=== PATIENT | female | born 1960 | race Caucasian/White ===

== ENCOUNTER → 2023-04-04 19:56 | Outpatient (CLI) | payer OTHER, SELFPAY ==
[2023-04-04 21:53] LABS: Alanine Aminotransferase 45 U/L (12-78); Albumin Level 4.5 g/dl (3.5-5.0); Alkaline Phosphatase 74 U/L (38-126); Aspartate Amino Transferase 42 U/L (14-36); Bilirubin,Total 0.5 mg/dl (0.2-1.3); Blood Urea Nitrogen 15 mg/dl (7-17); Calcium 9.7 mg/dl (8.4-10.2); Carbon Dioxide 30 mmol/L (22.0-30.0); Chloride 98 mmol/L (98-107); Estimated Glomerular Filt Rate 63 ml/min (>60); GFR (African American) 76 ML/MIN (>60); Globulin 2.3 g/dL (1.3-3.2); Glucose 183 mg/dl (74-100); Sodium 139 mmol/L (136-145); Total Protein,Serum 6.8 g/dl (6.3-8.2)
[2023-04-05 00:17] LABS: Hemoglobin A1C 7.4 % (4.0-6.0)
== END ==
PROVIDERS: PCP Internal Medicine; Visit Provider Internal Medicine
DX: E11.42 Type 2 diabetes mellitus with diabetic polyneuropathy (principal); E03.9 Hypothyroidism, unspecified; K76.0 Fatty (change of) liver, not elsewhere classified; R51.9 Headache, unspecified; M54.2 Cervicalgia
CPT/HCPCS: 80053; 83036; 84443

== ENCOUNTER → 2023-07-04 11:22 | Outpatient (CLI) | payer OTHER, SELFPAY ==
--- NOTE | 2023-07-04 11:29 | XR_ITS ---
FINAL REPORT CLINICAL HISTORY: S/P FALL ON LT HIP APRIL 2023,LT HIP PAIN FINDINGS: Left hip Three views were obtained. There is no acute fracture or dislocation. The joint spaces appear normal. No soft tissue abnormality is identified. IMPRESSION: No acute process. Reviewed, Interpreted and Dictated by Chase Baig MD Transcribed by Alyson Duke Authenticated and [facility]
== END ==
PROVIDERS: PCP Internal Medicine; Visit Provider Internal Medicine
DX: E11.42 Type 2 diabetes mellitus with diabetic polyneuropathy (principal); M25.552 Pain in left hip; W19.XXXA Unspecified fall, initial encounter
CPT/HCPCS: 73502; 83036

== ENCOUNTER 2023-09-24 13:22 | Outpatient (CLI) | payer OTHER, SELFPAY ==
[2023-09-24 15:43] LABS: Alanine Aminotransferase 51 U/L (12-78); Albumin Level 4.6 g/dl (3.5-5.0); Albumin/Globulin Ratio 1.8 (1.1-1.8); Alkaline Phosphatase 90 U/L (38-126); Anion Gap 13.1 mEq/L (5-15); Aspartate Amino Transferase 47 U/L (14-36); Bilirubin,Total 0.4 mg/dl (0.2-1.3); Blood Urea Nitrogen 14 mg/dl (7-17); Calcium 9.8 mg/dl (8.4-10.2); Carbon Dioxide 31 mmol/L (22.0-30.0); Chloride 101 mmol/L (98-107); Chol/HDL Ratio 5.2 (1-3.5); Cholesterol 256 mg/dl (140-200); Estimated Glomerular Filt Rate 72 ml/min (>60); GFR (African American) 87 ML/MIN (>60); Globulin 2.5 g/dL (1.3-3.2); Glucose 145 mg/dl (74-100); HDL Cholesterol 49 mg/dl (40-60); Potassium 5.1 mmoL/L (3.5-5.1); Sodium 140 mmol/L (136-145); Total Protein,Serum 7.1 g/dl (6.3-8.2); Triglycerides 223 mg/dl (30-150); VLDL Cholesterol 45 mg/dL (0-40)
[2023-09-24 15:53] LABS: Direct LDL Cholesterol 145.44 mg/dL (100-129)
[2023-09-24 16:10] LABS: Thyroid Stimulating Hormone 3.17 uIU/mL (0.465-4.68)
[2023-09-24 16:39] LABS: Hemoglobin A1C 7.9 % (4.0-6.0)
== END 2023-09-24 23:59 ==
LOC: LAB.DROPOF 13:23
PROVIDERS: PCP Internal Medicine; Visit Provider Internal Medicine
DX: E11.42 Type 2 diabetes mellitus with diabetic polyneuropathy (principal); E03.9 Hypothyroidism, unspecified; E78.5 Hyperlipidemia, unspecified; I10 Essential (primary) hypertension; K76.0 Fatty (change of) liver, not elsewhere classified
CPT/HCPCS: 80053; 80061; 83036; 84443

== ENCOUNTER 2023-11-15 08:37 | Emergency (ER) | payer OTHER, SELFPAY ==
[2023-11-15] VITALS (8 sets, daily range): BP systolic 136–186; BP diastolic 94–119; PULSE 76–89; RESP 15; TEMP 36.7–36.9; O2SAT 95–97; BMI 30.1
--- NOTE | 2023-11-15 09:25 | XR_ITS ---
FINAL REPORT CLINICAL HISTORY: L thoracic cage tenderness subjective swelling pt was bit by a tick x 1 week ago , left side mid back , redness around area , pt has asthma FINDINGS: TWO-VIEW CHEST The heart size is normal. The mediastinum is normal. There are small calcified granulomas in the right upper lobe. The lungs are otherwise clear. There is no pneumothorax. IMPRESSION: No acute cardiopulmonary process. Reviewed, Interpreted and Dictated by Christiano Blackburn MD Transcribed by Alyson Duke Authenticated and [facility]
--- NOTE | 2023-11-15 09:30 | ED_ITS ---
Discharge Plan Disposition Patient Disposition: Home, Self-Care Prescriptions Prescriptions: New doxycycline hyclate 100 mg capsule 100 mg PO BID 10 Days Qty: 20 0RF Referrals Follow up/Referrals: John Mathews MD [Primary Care Provider] - See instructions Activity Restrictions/Add. Instructions Additional Instructions/Restrictions: At this time it was felt you are safe to be discharged home. If new or worsening symptoms please do not hesitate to return the emergency department. Please take your medications as prescribed and follow-up with your family doctor next week as discussed. Clinical Impressions Clinical Impression: Erythema migrans (Lyme disease) Instructions Patient Instructions: DI for Skin Abscess Discharge ED Provider: Girish Spencer General Adult HPI General Chief complaint: Skin/Abscess/Foreign Body Stated complaint: tick bite, redness and swelling on back Time Seen by Provider: 11/15/23 08:45 Mode of Arrival: Ambulatory Source of Information: Patient Limitations: No Limitations Description of Symptoms (Recalled from ER Triage Doc. by RN): pt presents to ED with redness and swelling on left flank/back area. pt reports last she noticed a tick had bitten her. her sister was able to get the tick off. pt reports swelling and redness began that night. pt reports tenderness began a few days ago. History of Present Illness HPI narrative: Patient is a 63-year-old female with no pertinent past medical history who presents emergency department for evaluation of symptoms related to a tick bite. Patient had a tick that was found attached to her back for an unknown amount of time in the left thoracolumbar paraspinal area. She has had tenderness and subjective swelling in the skin adjacent to that extending around to her thoracic cage. Due to these persistent symptoms she presents here for continued evaluation. There is associated nausea. Related Data Previous Rx's Medication Instructions Recorded doxycycline hyclate 100 mg capsule 100 mg PO BID erythema migrans 10 11/15/23 days #20 caps Allergies Allergy/AdvReac Type Severity Reaction Status Date / Time cephalexin [From Keflex] Allergy Verified 11/15/23 08:57 Cephalosporins Allergy Verified 11/15/23 08:57 doxycycline Allergy Verified 11/15/23 08:57 irbesartan [From Avapro] Allergy Verified 11/15/23 08:57 Penicillins Allergy Verified 11/15/23 08:57 Sulfa (Sulfonamide Allergy Verified 11/15/23 08:57 Antibiotics) Tetracyclines Allergy Verified 11/15/23 08:57 [facility] Disclaimer: The information contained in this section may have been updated after the patient was seen, as this information can be updated by other users. Social History Smoking Status: Never smoker alcohol intake: never current occupational status: other Travel in the last 8 weeks: None ROS Obtained: Yes Systems reviewed as appropriate & no additional complaints except as documented Physical Exam General General appearance: alert and in no apparent distress Head Head exam: atraumatic and normocephalic Eye Eye exam: Present PERRL and EOMI ENT ENT exam: Present mucous membranes moist Neck Neck exam: Present normal inspection Chest Chest inspection: Present normal inspection and symmetric chest wall rise Respiratory Respiratory exam: Present normal lung sounds bilaterally; Absent respiratory distress Cardiovascular Cardiovascular exam: Present regular rate and normal rhythm Abdominal Exam Abdominal exam: Present soft; Absent tenderness Extremities Exam Extremities exam: Present normal inspection Back Exam Back exam: Present other (Tender left posterior lateral thoracic cage, mild swelling, no crepitus.) Neurological Exam Neurological exam: Present alert; Absent motor sensory deficit Psychiatric Psychiatric exam: Present normal affect Skin Skin exam: Present warm, dry and rash (Targetoid rash over left thoracolumbar posterior lateral thoracic cage.) Medical Decision Making Rodrick Inquiry Pt receiving controlled substance: No Vital Signs: 11/15/23 08:40 11/15/23 09:00 11/15/23 09:31 Temperature 98.5 F Temperature Source Oral Pulse Rate 89 87 Pulse Rate [Left Radial] 86 Respiratory Rate 15 Blood Pressure 152/103 H 136/119 H Blood Pressure [Right Arm] 176/99 H Blood Pressure Mean [Right Arm] 124 02 Sat by Pulse Oximetry 96 97 95 Oxygen Delivery Method Room Air Room Air Room Air 11/15/23 09:32 11/15/23 09:57 Temperature Temperature Source Pulse Rate 80 85 Pulse Rate [Left Radial] Respiratory Rate Blood Pressure 186/97 H 176/98 H Blood Pressure [Right Arm] Blood Pressure Mean [Right Arm] 02 Sat by Pulse Oximetry 95 95 Oxygen Delivery Method Room Air Room Air Orders (Tests/Meds): ED MEDICATIONS Discontinued Medications Generic Name Dose Route Start Last Admin Trade Name Freq PRN Reason Stop Dose Admin Doxycycline Hyclate 100 mg 11/15/23 09:27 11/15/23 09:53 Doxycycline Hycl 100 Mg Tablet PO 11/15/23 09:28 100 mg ONCE ONE Administration Ondansetron HCl 4 mg 11/15/23 09:26 11/15/23 09:53 Ondansetron 4mg Odt SL 11/15/23 09:27 4 mg ONCE ONE Administration ORDERS Category Date Time Status CXR 2 view (NOT portable) [XR chest 2V] Stat Exams 11/15/23 09:25 Completed EKG Request [ECG Request] Stat Y 11/15/23 09:25 Ordered ECG Data Tracing #1: Independently interpreted by me, rate is 80, rhythm is regular, UT interval 149, no ST elevation in anatomical contiguous leads, no AV block. QTc 422. Medical Decision Narrative: In summary patient is a 63-year-old female who presents emergency department for evaluation of a tick bite. Patient is hemodynamically stable nontoxic-appearing upon arrival, afebrile. Patient has a targetoid rash at the site of the tick bite consistent with erythema migrans. She has tenderness over left thoracic cage, no fluctuance, no crepitus. Limited workup will be conducted with chest x-ray two-view, EKG screening for AV block. Patient does not have Coello's palsy clinically. Remainder of exam unremarkable. She is nauseous so patient will be given Zofran, p.o. challenge. Initial interventions include doxycycline. X-ray informally interpreted by me, no large pleural effusion, no obvious osseous lesions. Formal read no acute abnormality. Patient underwent a period of observation given her unknown allergy to tetracyclines for over 1 hour and was asymptomatic. Given this patient is appropriate for discharge at this time will be discharged with a course of doxycycline and will follow-up with her PCP next week for continued evaluation. Critical Care Critical Care Time Critical Care Time: No
--- NOTE | 2023-11-15 09:31 | ECG_ITS ---
APPROVED REPORT Exam: Resting ECG HR:80 bpm ECG Measurements Heart Rate 80 AXES MD 149 P 33 QRSd 79 QRS 34 QT 387 T 49 QTc 422 Conclusion SINUS RHYTHM NORMAL ECG Electronically signed by : CARLOS HARRELL, 11/16/2023 06:09:06
--- NOTE | 2023-11-15 09:50 | PC.NURSE ---
MD spoke with pt regarding allergy. okayed to give
[2023-11-15] MEDS: DOXYCYCLINE HYCL 100 MG TABLET PO (09:53)
[2023-11-15] MEDS: ONDANSETRON 4MG ODT 4 MG SL (09:53)
--- NOTE | 2023-11-15 11:00 | PC.NURSE ---
ROUNDED ON PT NO NEEDS AT THIS TIME CALL LIGHT IN REACH
== END 2023-11-15 11:13 | disposition home or self-care (01) ==
PROVIDERS: Emergency Provider Emergency Medicine; PCP Internal Medicine
DX: A69.20 Lyme disease, unspecified (principal); S30.860A Insect bite (nonvenomous) of lower back and pelvis, initial encounter; R11.0 Nausea; W57.XXXA Bitten or stung by nonvenomous insect and other nonvenomous arthropods, initial encounter
CPT/HCPCS: 71046; 93005; 99283

== ENCOUNTER 2023-12-19 14:36 | Outpatient (CLI) | payer MEDICARE, SELFPAY ==
--- NOTE | 2023-12-19 14:45 | XR_ITS ---
FINAL REPORT CLINICAL HISTORY: Bilateral chest pain post fall in april FINDINGS: TWO-VIEW CHEST The heart size is normal. The mediastinum is normal. There are mild bibasilar opacities, may represent atelectasis or pneumonia. There is no pneumothorax. IMPRESSION: Mild bibasilar atelectasis versus pneumonia. Reviewed, Interpreted and Dictated by Juan Morales III, MD Transcribed by Alyson Duke Authenticated and [facility]
--- NOTE | 2023-12-19 14:45 | XR_ITS ---
FINAL REPORT CLINICAL HISTORY: Flank pain; left sided pain post fall in april FINDINGS: ABDOMEN SINGLE VIEW There is a nonspecific, nonobstructive bowel gas pattern. No bowel dilation is identified. There are postoperative changes in the right abdomen. IMPRESSION: No acute process. Reviewed, Interpreted and Dictated by Juan Morales III, MD Transcribed by Alyson Duke Authenticated and [facility]
== END 2023-12-19 23:59 | disposition home or self-care (01) ==
PROVIDERS: PCP Internal Medicine; Visit Provider Internal Medicine
DX: R10.9 Unspecified abdominal pain (principal); R07.9 Chest pain, unspecified
CPT/HCPCS: 71046; 74018

== ENCOUNTER 2024-01-01 13:28 | Outpatient (CLI) | payer MEDICARE, SELFPAY ==
[2024-01-01 14:01] LABS: Hemoglobin A1C 8.2 % (4.0-6.0)
== END 2024-01-01 23:59 | disposition home or self-care (01) ==
LOC: LAB.DROPOF 13:28
PROVIDERS: PCP Internal Medicine; Visit Provider Internal Medicine
DX: E11.9 Type 2 diabetes mellitus without complications (principal); Z79.84 Long term (current) use of oral hypoglycemic drugs
CPT/HCPCS: 83036

== ENCOUNTER 2024-02-11 15:38 | Outpatient (CLI) | payer MEDICARE, SELFPAY ==
[2024-02-11 16:53] LABS: Adenovirus F 40/41, stool Not Detected (NotDetected); Astrovirus Not Detected (NotDetected); Campylobacter Not Detected (NotDetected); Clostridium Difficile A/B, PCR Not Detected (NotDetected); Cryptosporidium Not Detected (NotDetected); Cyclospora Cayetanesis Not Detected (NotDetected); Entamoeba histolytica Not Detected (NotDetected); Enteroaggregative E coli Not Detected (NotDetected); Enteropathogenic E coli Not Detected (NotDetected); Enterotoxigenic E coli Not Detected (NotDetected); Giardia lamblia Not Detected (NotDetected); Norovirus Not Detected (NotDetected); Plesimonas Shigalloides, PCR Not Detected (NotDetected); Rotavirus A Not Detected (NotDetected); Salmonella, PCR Not Detected (NotDetected); Sapovirus Not Detected (NotDetected); Shiga-like toxin E coli Not Detected (NotDetected); Shigella Enterovasive E coli Not Detected (NotDetected); Vibrio Cholerae Not Detected (NotDetected); Vibrio, PCR Not Detected (NotDetected); Yersinia Entercolitica, PCR Not Detected (NotDetected)
== END 2024-02-11 23:59 | disposition home or self-care (01) ==
LOC: LAB.DROPOF 02-12 15:39
PROVIDERS: PCP Internal Medicine; Visit Provider Internal Medicine
DX: A04.9 Bacterial intestinal infection, unspecified (principal)
CPT/HCPCS: 87506

== ENCOUNTER 2024-06-23 14:50 | Outpatient (CLI) | payer MEDICARE, SELFPAY ==
[2024-06-23 13:29] LABS: Basophils # 0.1 K/mm3 (0-0.2); Basophils % 0.6 % (0.1-2.0); Eosinophils # 0.2 K/mm3 (0.0-0.4); Eosinophils % 2.3 % (0.1-12.0); Hematocrit 42.9 % (37.0-47.0); Hemoglobin 14.5 g/dL (12.2-16.2); Lymphocytes # 2.1 K/mm3 (0.7-4.5); Lymphocytes % 24.6 % (10-50); Mean Corpuscular HGB Conc 33.9 g/dL (31.8-35.4); Mean Corpuscular Hemoglobin 29.8 pg (27.0-31.2); Mean Platelet Volume 8.7 fl (7.4-10.4); Monocytes # 0.4 K/mm3 (0.1-1.0); Neutrophils # 5.9 K/mm3 (1.8-7.8); Neutrophils % 67.6 % (37.0-80.0); Platelet Count 296 K/mm3 (142-424); Red Blood Count 4.87 M/mm3 (4.20-5.40); Red Cell Distribution Width 13.5 % (11.5-17.5); White Blood Count 8.7 K/mm3 (4.8-10.8)
[2024-06-23 13:52] LABS: Creatinine,Urine Random 159 mg/dL (Not Estab.)
[2024-06-23 13:55] LABS: Microalbumin/Creatinine Ratio 5.6
[2024-06-23 14:53] LABS: Albumin Level 4.3 g/dl (3.5-5.0); Chloride 101 mmol/L (98-107); Potassium 4.8 mmoL/L (3.5-5.1); Sodium 137 mmol/L (136-145)
[2024-06-23 14:55] LABS: Alanine Aminotransferase 41 U/L (12-78); Aspartate Amino Transferase 51 U/L (14-36); Blood Urea Nitrogen 15 mg/dl (7-17); Estimated Glomerular Filt Rate 72 ml/min (>60); GFR (African American) 87 ML/MIN (>60)
[2024-06-23 14:56] LABS: Alkaline Phosphatase 97 U/L (38-126); Anion Gap 13.8 mEq/L (5-15); Bilirubin,Total 0.9 mg/dl (0.2-1.3); Calcium 9.5 mg/dl (8.4-10.2); Carbon Dioxide 27 mmol/L (22.0-30.0); Chol/HDL Ratio 2.6 (1-3.5); Cholesterol 131 mg/dl (140-200); Globulin 2.1 g/dL (1.3-3.2); Glucose 231 mg/dl (74-100); HDL Cholesterol 50 mg/dl (40-60); Total Protein,Serum 6.4 g/dl (6.3-8.2); Triglycerides 133 mg/dl (30-150); VLDL Cholesterol 27 mg/dL (0-40)
[2024-06-23 15:07] LABS: Direct LDL Cholesterol 62.18 mg/dL (100-129)
[2024-06-23 15:26] LABS: Thyroid Stimulating Hormone 3.11 uIU/mL (0.465-4.68)
[2024-06-23 18:27] LABS: Hemoglobin A1C 9.7 % (4.0-6.0)
== END 2024-06-23 23:59 | disposition home or self-care (01) ==
LOC: LAB.DROPOF 14:50
PROVIDERS: PCP Internal Medicine; Visit Provider Internal Medicine
DX: I10 Essential (primary) hypertension (principal); E11.49 Type 2 diabetes mellitus with other diabetic neurological complication; E03.9 Hypothyroidism, unspecified; E11.42 Type 2 diabetes mellitus with diabetic polyneuropathy; E78.5 Hyperlipidemia, unspecified
CPT/HCPCS: 80053; 80061; 82043; 82570; 83036; 84443; 85025

== ENCOUNTER 2024-11-21 06:33 | Emergency (ER) | payer MEDICARE, SELFPAY ==
[2024-11-21 06:37] VITALS: BP 151/97; PULSE 117; O2SAT 93
[2024-11-21 06:38] VITALS: BP 151/97; PULSE 116; RESP 20; TEMP 37.2; O2SAT 92; BMI 30.1
--- NOTE | 2024-11-21 06:42 | XR_ITS ---
FINAL REPORT CLINICAL HISTORY: Cough, shortness of breath, fever COMPARISON: 12/19/2023 FINDINGS: PA and lateral views of the chest are obtained. The cardiac and mediastinal silhouettes are within normal limits. There are new patchy bilateral lower lung opacities concerning for pneumonia. The lungs are otherwise clear. There is no pleural effusion, pneumothorax, or acute osseous abnormality. IMPRESSION: Patchy bilateral lower lung opacities concerning for pneumonia. Recommend follow-up radiographs. Reviewed, Interpreted and Dictated by Nancie Briscoe MD Transcribed by Isabella Francis Authenticated and [facility]
--- NOTE | 2024-11-21 06:44 | HMH.EDGENADL ---
Discharge Plan Disposition Patient Disposition: Home, Self-Care Prescriptions Prescriptions: New levofloxacin 750 mg tablet 750 mg PO DAILY 5 Days Qty: 5 0RF Rx Instructions: Start tomorrow 11/22/2024 prednisone 20 mg tablet 40 mg PO DAILY 4 Days Qty: 8 0RF Rx Instructions: Start tomorrow 11/22/2024 No Action promethazine 12.5 mg tablet See Rx Instructions PO Q6H PRN (Reason: nausea and vomiting) Qty: 30 1RF Rx Instructions: 1 or 2 tablets orally every 6 hours PRN; cyclobenzaprine 5 mg tablet 5 mg PO DAILY Patient Comments: TAKE ONE TABLET BY MOUTH EVERY DAY AT BEDTIME NEEDED FOR neck SPASMS MAY CAUSE DROWSINESS All Day Allergy (cetirizine) 10 mg capsule 10 mg PO DAILY PRN ondansetron 4 mg tablet,disintegrating 4 mg PO Q8H PRN (Reason: nausea and vomiting) Qty: 30 1RF fluconazole 150 mg tablet 150 mg PO Q3D Qty: 2 0RF levothyroxine 50 mcg tablet 50 mcg PO DAILY Qty: 90 1RF metformin 1,000 mg tablet 1,000 mg PO BID Qty: 180 1RF buspirone 7.5 mg tablet See Rx Instructions .ROUTE .COMPLEX Qty: 60 2RF Dose Instruction: TAKE ONE TABLET BY MOUTH TWICE DAILY --TAKE WITH FOOD-- Rx Instructions: TAKE ONE TABLET BY MOUTH TWICE DAILY --TAKE WITH FOOD-- Rybelsus 3 mg tablet 3 mg PO DAILY 30 Days Qty: 30 5RF atorvastatin 40 mg tablet See Rx Instructions .ROUTE .COMPLEX Qty: 90 1RF Dose Instruction: TAKE ONE TABLET BY MOUTH EVERY DAY FOR cholesterol Rx Instructions: TAKE ONE TABLET BY MOUTH EVERY DAY FOR cholesterol citalopram 40 mg tablet See Rx Instructions .ROUTE .COMPLEX Qty: 135 1RF Dose Instruction: TAKE 1 & 1/2 (ONE & ONE-HALF) TABLETS BY MOUTH IN THE MORNING Rx Instructions: TAKE 1 & 1/2 (ONE & ONE-HALF) TABLETS BY MOUTH IN THE MORNING pramipexole 1 mg tablet 1 mg PO DAILY Qty: 90 1RF metoprolol succinate 25 mg tablet extended release 24 hr 25 mg PO DAILY Qty: 90 1RF hydrochlorothiazide 12.5 mg tablet 12.5 mg PO DAILY Qty: 30 2RF Referrals Follow up/Referrals: John Mathews MD [Primary Care Provider] - See instructions Activity Restrictions/Add. Instructions Additional Instructions/Restrictions: You were evaluated in the emergency department today. At this time, we are concerned for pneumonia. Your lab work, vitals, and exam are reassuring, so we feel that you are appropriate for discharge home. We are prescribing you Levaquin and prednisone to treat your pneumonia in the setting of asthma. 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 Take Tylenol and ibuprofen as needed for pain/fever. Follow-up closely with your primary care provider over the next week for recheck. Return to the emergency department right away for new or worsening symptoms, such as shortness of breath, persistent high fevers, or other concerns. Clinical Impressions Clinical Impression: Pneumonia Stand Alone Forms Stand Alone Forms: Work/School Release Instructions Patient Instructions: DI for Pneumonia -- Adult Print Language Print Language: Greek Discharge ED Provider: Dilshad Rico General Adult HPI <Dilshad Rico MD - Last Filed: 11/21/24 06:57> General Chief complaint: Upper Respiratory Infection Stated complaint: cough, fever Time Seen by Provider: 11/21/24 06:35 Mode of Arrival: Ambulatory Source of Information: Patient Description of Symptoms (Recalled from ER Triage Doc. by RN): Cough since Sunday Fever today History of Present Illness HPI narrative: 64-year-old female with history of type 2 diabetes, asthma presents for fever cough shortness of breath. She reports that her temperature was up to 101 at home. She has had nasal congestion, productive cough, feels like her chest is burning. Related Data Home Medications ?Medication ?Instructions ?Recorded ?Confirmed cetirizine 10 mg capsule (All Day 10 mg PO DAILY PRN 12/19/23 09/15/24 Allergy (cetirizine)) cyclobenzaprine 5 mg tablet 5 mg PO DAILY 12/19/23 09/15/24 Previous Rx's ?Medication ?Instructions ?Recorded ondansetron 4 mg disintegrating 4 mg PO Q8H PRN nausea and 12/19/23 tablet vomiting #30 tabs promethazine 12.5 mg tablet See Rx Instructions PO Q6H PRN 02/11/24 nausea and vomiting #30 tabs buspirone 7.5 mg tablet See Rx Instructions .Route 06/02/24 .COMPLEX #60 tabs levothyroxine 50 mcg tablet 50 mcg PO DAILY #90 tabs 06/02/24 metformin 1,000 mg tablet 1,000 mg PO BID #180 tabs 06/02/24 fluconazole 150 mg tablet 150 mg PO Q3D 2 doses #2 tabs 06/23/24 semaglutide 3 mg tablet (Rybelsus) 3 mg PO DAILY 30 days #30 tabs 07/04/24 atorvastatin 40 mg tablet See Rx Instructions .Route 07/17/24 .COMPLEX #90 tabs citalopram 40 mg tablet See Rx Instructions .Route 08/13/24 .COMPLEX #135 tabs pramipexole 1 mg tablet 1 mg PO DAILY #90 tabs 09/04/24 metoprolol succinate 25 mg 25 mg PO DAILY #90 tabs 10/15/24 tablet,extended release 24 hr hydrochlorothiazide 12.5 mg tablet 12.5 mg PO DAILY #30 tabs 11/14/24 levofloxacin 750 mg tablet 750 mg PO DAILY 5 days #5 tabs 11/21/24 prednisone 20 mg tablet 40 mg (2 x 20 mg) PO DAILY 4 days 11/21/24 #8 tabs Allergies Allergy/AdvReac Type Severity Reaction Status Date / Time cephalexin (From Keflex) Allergy Verified 09/15/24 11:41 Cephalosporins Allergy Verified 09/15/24 11:41 doxycycline Allergy Verified 09/15/24 11:41 irbesartan (From Avapro) Allergy Verified 09/15/24 11:41 Penicillins Allergy Verified 09/15/24 11:41 Sulfa (Sulfonamide Allergy Verified 09/15/24 11:41 Antibiotics) Tetracyclines Allergy Verified 09/15/24 11:41 [facility] <Dilshad Rico MD - Last Filed: 11/21/24 06:57> [facility] Disclaimer: The information contained in this section may have been updated after the patient was seen, as this information can be updated by other users. Medical History Type 2 diabetes mellitus without complications Social History Smoking Status: Never smoker alcohol intake: never current occupational status: other Travel in the last 8 weeks?: None Have you lived/traveled outside [place] in past 30 days?: No Contact w/someone who lives/traveled outside US past 30 days?: No Exposure to someone with infectious disease in past 14 days?: No Do you have a fever (greater than 100.4 F or 38 C)?: Yes Have you tested positive for COVID-19?: No Exposed to someone with COVID-19 in past 14 days?: No Do you have a sore throat?: No Do you have a cough?: Yes Do you have any weakness?: No Do you have any diarrhea?: No Are you experiencing any unusual bleeding?: No Do you have any muscle aches/pain?: No Do you have any abdominal pain?: No Are you experiencing loss of taste or smell?: No Other Medical History Have you received the Pneumonia Vaccine: No <Dilshad Rico MD - Last Filed: 11/21/24 06:57> ROS Obtained: Yes All systems reviewed & no additional complaints except as documented Physical Exam <Dilshad Rico MD - Last Filed: 11/21/24 06:57> General General appearance: alert Comment: Mildly uncomfortable appearing, diaphoretic Head Head exam: atraumatic and normocephalic Eye Eye exam: Present normal appearance, PERRL and EOMI ENT ENT exam: Present normal oropharynx and normal external ear exam Neck Neck exam: Present normal inspection and full ROM Chest Chest inspection: Present normal inspection and symmetric chest wall rise; Absent tenderness Respiratory Respiratory exam: Present other (Diminished breath sounds in the left base); Absent respiratory distress Cardiovascular Cardiovascular exam: Present normal rhythm and tachycardia Abdominal Exam Abdominal exam: Present soft; Absent distention, tenderness or guarding Extremities Exam Extremities exam: Present normal inspection; Absent edema or joint swelling Back Exam Back exam: Present normal inspection; Absent tenderness Neurological Exam Neurological exam: Present alert and oriented X3; Absent motor sensory deficit Psychiatric Psychiatric exam: Present normal affect and normal mood Skin Skin exam: Present warm, dry and normal color Lymphatic Lymphatic Findings: no adenopathy Medical Decision Making <Dilshad Rico MD - Last Filed: 11/21/24 06:57> Medical Records Medical records reviewed: Yes I reviewed the patient's medical records. Screening: Per USPSTF and CDC recommendations, given the prevalence of disease in our region, it is our hospital?s policy to screen for HIV and viral Hepatitis for all patients aged 18 and over and those with ongoing risk factors. Rodrick Inquiry Pt receiving controlled substance: No Rodrick was queried for this patient: No Vital Signs: 11/21/24 06:37 11/21/24 06:38 11/21/24 07:00 Temperature 98.9 F Temperature Source Oral Pulse Rate 117 H 105 H Pulse Rate [Right Brachial] 116 H Respiratory Rate 20 Blood Pressure 151/97 H 123/71 Blood Pressure [Right Arm] 151/97 H Blood Pressure Mean [Right Arm] 115 Blood Pressure Source [Right Arm] Automatic Cuff 02 Sat by Pulse Oximetry 93 L 92 L 95 Oxygen Delivery Method Room Air Room Air 11/21/24 08:00 11/21/24 08:39 Temperature 98.2 F Temperature Source Pulse Rate 104 H 94 H Pulse Rate [Right Brachial] Respiratory Rate 18 Blood Pressure 140/75 140/75 Blood Pressure [Right Arm] Blood Pressure Mean [Right Arm] Blood Pressure Source [Right Arm] 02 Sat by Pulse Oximetry 93 L Oxygen Delivery Method Lab Data Lab results reviewed: Yes I reviewed the patient's lab results. Lab Results 11/21/24 06:55: WBC 11.2 H, RBC 4.68, Hgb 13.8, Hct 41.1, MCV 87.8, MCH 29.5, MCHC 33.6, RDW 13.0, Plt Count 234, MPV 10.4, Neut % (Auto) 74.3, Lymph % (Auto) 17.7, Stewart % (Auto) 6.6, Eos % (Auto) 0.6, Baso % (Auto) 0.4, Neut # (Auto) 8.3 H, Lymph # (Auto) 2.0, Stewart # (Auto) 0.7, Eos # (Auto) 0.1, Baso # (Auto) 0.0, Sodium 137, Potassium 4.1, Chloride 100, Carbon Dioxide 29, Anion Gap 12.1, BUN 9, Creatinine 0.80, Estimated Creat Clear 67, Estimated GFR 72, Est GFR ( Amer) 87, Glucose 214 H, Calcium 9.8, Total Bilirubin 1.0, AST 41 H, ALT 45, Alkaline Phosphatase 99, Total Protein 7.6, Albumin 5.0, Globulin 2.6, Albumin/Globulin Ratio 1.9 H, HCV Ab ERIC w/Rflx PCR Qn Negative, HIV Ag/Ab Combo Qual Negative 11/21/24 06:56: SARS-CoV-2 (PCR) Not detected, Influenza A Untype (PCR) Not detected, Influenza Type B (PCR) Not detected 11/21/24 07:02: VBG pH 7.40, VBG pCO2 45.9, VBG pO2 24.7 L, VBG HCO3 27.8, VBG Total CO2 29.2 H, VBG O2 Saturation 46.6 L, VBG Base Excess 3.0 H, VBG Lactic Acid 2.1 H 11/21/24 06:55 11/21/24 06:55 Orders (Tests/Meds): ED MEDICATIONS Discontinued Medications Generic Name Dose Route Start Last Admin Trade Name Freq PRN Reason Stop Dose Admin Lactated Ringer's 1,000 mls @ 999 mls/hr 11/21/24 07:00 11/21/24 07:43 Lactated Ringer's 1000 Ml Bag IV 11/21/24 08:00 Not Given .Q1H1M DEBRA Levofloxacin 750 mg 11/21/24 08:12 11/21/24 08:35 Levofloxacin 750 Mg Tablet PO 11/21/24 08:13 750 mg ONCE ONE Administration Prednisone 40 mg 11/21/24 08:10 11/21/24 08:33 Prednisone 20mg Tab PO 11/21/24 08:11 40 mg ONCE ONE Administration ORDERS Category Date Time Status CXR 2 view (NOT portable) [XR chest 2V] Stat Exams 11/21/24 06:42 Completed CBC w/Auto Diff [Complete Blood Count Auto Diff] Stat Lab 11/21/24 06:55 Completed CMP [Comprehensive Metabolic Panel] Stat Lab 11/21/24 06:55 Completed HIV Combo Routine Lab 11/21/24 06:55 Completed Hepatitis C Ab Qual. W/ RFX Routine Lab 11/21/24 06:55 Completed Lactate Venous Stat Lab 11/21/24 07:02 Ordered Rapid PCR Covid and Flu A/B Stat Lab 11/21/24 06:56 Completed Blood Culture Stat Micro 11/21/24 06:56 Received VBG [Venous Blood Gas] Stat RT 11/21/24 07:02 Completed Medical Decision Narrative: 64-year-old female with history of asthma, diabetes presents for several days of cough congestion fever and shortness of breath. History was obtained via interactive discussion with patient, chart review. On arrival, patient is afebrile, mildly tachycardic, satting low 90s on room air, moving all extremities spontaneously. Full physical exam performed and significant for diminished lung sounds in the bases Differential includes but is not limited to pneumonia, asthma exacerbation, URI, bacteremia. Workup initiated including 2 view chest x-ray, CBC CMP blood cultures VBG swab. Patient given 1 L of IV fluid bolus. At this time care handed off to oncoming physician pending workup. <Joan Woodson, DO - Last Filed: 11/21/24 09:38> Vital Signs: 11/21/24 06:37 11/21/24 06:38 11/21/24 07:00 Temperature 98.9 F Temperature Source Oral Pulse Rate 117 H 105 H Pulse Rate [Right Brachial] 116 H Respiratory Rate 20 Blood Pressure 151/97 H 123/71 Blood Pressure [Right Arm] 151/97 H Blood Pressure Mean [Right Arm] 115 Blood Pressure Source [Right Arm] Automatic Cuff 02 Sat by Pulse Oximetry 93 L 92 L 95 Oxygen Delivery Method Room Air Room Air 11/21/24 08:00 11/21/24 08:39 Temperature 98.2 F Temperature Source Pulse Rate 104 H 94 H Pulse Rate [Right Brachial] Respiratory Rate 18 Blood Pressure 140/75 140/75 Blood Pressure [Right Arm] Blood Pressure Mean [Right Arm] Blood Pressure Source [Right Arm] 02 Sat by Pulse Oximetry 93 L Oxygen Delivery Method Lab Data Lab Results 11/21/24 06:55: WBC 11.2 H, RBC 4.68, Hgb 13.8, Hct 41.1, MCV 87.8, MCH 29.5, MCHC 33.6, RDW 13.0, Plt Count 234, MPV 10.4, Neut % (Auto) 74.3, Lymph % (Auto) 17.7, Stewart % (Auto) 6.6, Eos % (Auto) 0.6, Baso % (Auto) 0.4, Neut # (Auto) 8.3 H, Lymph # (Auto) 2.0, Stewart # (Auto) 0.7, Eos # (Auto) 0.1, Baso # (Auto) 0.0, Sodium 137, Potassium 4.1, Chloride 100, Carbon Dioxide 29, Anion Gap 12.1, BUN 9, Creatinine 0.80, Estimated Creat Clear 67, Estimated GFR 72, Est GFR ( Amer) 87, Glucose 214 H, Calcium 9.8, Total Bilirubin 1.0, AST 41 H, ALT 45, Alkaline Phosphatase 99, Total Protein 7.6, Albumin 5.0, Globulin 2.6, Albumin/Globulin Ratio 1.9 H, HCV Ab ERIC w/Rflx PCR Qn Negative, HIV Ag/Ab Combo Qual Negative 11/21/24 06:56: SARS-CoV-2 (PCR) Not detected, Influenza A Untype (PCR) Not detected, Influenza Type B (PCR) Not detected 11/21/24 07:02: VBG pH 7.40, VBG pCO2 45.9, VBG pO2 24.7 L, VBG HCO3 27.8, VBG Total CO2 29.2 H, VBG O2 Saturation 46.6 L, VBG Base Excess 3.0 H, VBG Lactic Acid 2.1 H Orders (Tests/Meds): ED MEDICATIONS Discontinued Medications Generic Name Dose Route Start Last Admin Trade Name Freq PRN Reason Stop Dose Admin Lactated Ringer's 1,000 mls @ 999 mls/hr 11/21/24 07:00 11/21/24 07:43 Lactated Ringer's 1000 Ml Bag IV 11/21/24 08:00 Not Given .Q1H1M DEBRA Levofloxacin 750 mg 11/21/24 08:12 11/21/24 08:35 Levofloxacin 750 Mg Tablet PO 11/21/24 08:13 750 mg ONCE ONE Administration Prednisone 40 mg 11/21/24 08:10 11/21/24 08:33 Prednisone 20mg Tab PO 11/21/24 08:11 40 mg ONCE ONE Administration ORDERS Category Date Time Status CXR 2 view (NOT portable) [XR chest 2V] Stat Exams 11/21/24 06:42 Completed CBC w/Auto Diff [Complete Blood Count Auto Diff] Stat Lab 11/21/24 06:55 Completed CMP [Comprehensive Metabolic Panel] Stat Lab 11/21/24 06:55 Completed HIV Combo Routine Lab 11/21/24 06:55 Completed Hepatitis C Ab Qual. W/ RFX Routine Lab 11/21/24 06:55 Completed Lactate Venous Stat Lab 11/21/24 07:02 Ordered Rapid PCR Covid and Flu A/B Stat Lab 11/21/24 06:56 Completed Blood Culture Stat Micro 11/21/24 06:56 Received VBG [Venous Blood Gas] Stat RT 11/21/24 07:02 Completed Medical Decision Narrative: 64-year-old female with history of asthma, diabetes presents for several days of cough congestion fever and shortness of breath. History was obtained via interactive discussion with patient, chart review. On arrival, patient is afebrile, mildly tachycardic, satting low 90s on room air, moving all extremities spontaneously. Full physical exam performed and significant for diminished lung sounds in the bases Differential includes but is not limited to pneumonia, asthma exacerbation, URI, bacteremia. Workup initiated including 2 view chest x-ray, CBC CMP blood cultures VBG swab. Patient given 1 L of IV fluid bolus. At this time care handed off to oncoming physician pending workup. DO Chintan: I assumed care of the patient at 7 AM at time of departure of the previous provider. On reassessment, she is lying in bed in no acute distress with reassuring vitals on cardiac telemetry. O2 saturation remains 92 to 93% on room air. She is nontachycardic after bolus of IV fluids. Labs demonstrate mild leukocytosis and mildly elevated lactic acid, so I did consider sepsis however patient is nontoxic-appearing and lab derangements are not significant outside of normal range. Blood cultures were sent and are pending, but I do not feel that she likely is truly septic at this time. I independently interpreted x-ray prior to radiology read and noted concern for pneumonia, bibasilar. Please radiology read for final interpretation. Given pneumonia, will plan to treat with antibiotics. She has multiple antibiotic allergies and intolerances, so I have elected to treat with Levaquin, which is not on her list. Will also treat with prednisone given her history of asthma. She does already have inhalers at home. At this time, patient deemed to be appropriate for discharge with prescriptions for Levaquin and prednisone. Strict return precautions were given as well as instructions for close follow-up with PCP. Procedures <Dilshad Rico MD - Last Filed: 11/21/24 06:57> Risk/Benefits of Procedure(s) Were Explained: Yes Critical Care <Dilshad Rico MD - Last Filed: 11/21/24 06:57> Critical Care Time Critical Care Time: No
[2024-11-21 07:00] VITALS: BP 123/71; PULSE 105; O2SAT 95
[2024-11-21 07:04] LABS: VBG HCO3 27.8 mmol/L (23-30); VBG Oxygen Saturation 46.6 % (50-70); VBG PCO2 45.9 mmol/L (35-51); VBG PO2 24.7 mmol/L (28-40); VBG Total CO2 29.2 mmol/L (23-27)
[2024-11-21 07:05] LABS: Basophils % 0.4 % (0.1-2.0); Eosinophils # 0.1 Kmm3 (0.0-0.4); Eosinophils % 0.6 % (0.1-12.0); Hematocrit 41.1 % (37.0-47.0); Hemoglobin 13.8 g/dL (12.2-16.2); Immature Granulocytes # 0.04 10^3uL; Immature Granulocytes % 0.4 %; Lymphocytes % 17.7 % (10-50); Mean Corpuscular HGB Conc 33.6 g/dL (31.8-35.4); Mean Corpuscular Hemoglobin 29.5 pg (27.0-31.2); Mean Corpuscular Volume 87.8 fl (81-99); Mean Platelet Volume 10.4 fl (7.4-10.4); Monocytes # 0.7 K/mm3 (0.1-1.0); Monocytes % 6.6 % (1.7-9.3); Neutrophils # 8.3 K/mm3 (1.8-7.8); Neutrophils % 74.3 % (37.0-80.0); Nucleated Red Blood Cells # 0 10^3/uL; Nucleated Red Blood Cells % 0 %; Platelet Count 234 K/mm3 (142-424); Red Blood Count 4.68 M/mm3 (4.20-5.40); Red Cell Distribution Width-SD 41.6 fL; White Blood Count 11.2 K/mm3 (4.8-10.8)
[2024-11-21 07:05] LABS: Lactate Venous 2.1 mmol/L (0.4-2.0)
[2024-11-21 07:06] LABS: Coronavirus 19, PCR Not Detected (NotDetected); Influenza A, PCR Not Detected (NotDetected); Influenza B, PCR Not Detected (NotDetected)
[2024-11-21 07:17] LABS: Alanine Aminotransferase 45 U/L (12-78); Albumin/Globulin Ratio 1.9 (1.1-1.8); Alkaline Phosphatase 99 U/L (38-126); Anion Gap 12.1 mEq/L (5-15); Aspartate Amino Transferase 41 U/L (14-36); Blood Urea Nitrogen 9 mg/dl (7-17); Calcium 9.8 mg/dl (8.4-10.2); Carbon Dioxide 29 mmol/L (22.0-30.0); Chloride 100 mmol/L (98-107); Creatinine Clearance Estimated 67 mL/min (50-200); Estimated Glomerular Filt Rate 72 ml/min (>60); GFR (African American) 87 ML/MIN (>60); Globulin 2.6 g/dL (1.3-3.2); Glucose 214 mg/dl (74-100); Potassium 4.1 mmoL/L (3.5-5.1); Sodium 137 mmol/L (136-145); Total Protein,Serum 7.6 g/dl (6.3-8.2)
--- NOTE | 2024-11-21 07:18 | PC.NURSE ---
Per radiology patient pulled iv out.
--- NOTE | 2024-11-21 07:42 | PC.NURSE ---
I rounded on the pt. no new complaints at this time. no needs voiced. call mullins in reach.
[2024-11-21 08:00] VITALS: BP 140/75; PULSE 104; O2SAT 93
[2024-11-21] MEDS: predniSONE 20MG TAB 40 MG PO (08:33)
[2024-11-21] MEDS: levoFLOXacin 750 MG TABLET PO (08:35)
[2024-11-21 08:39] VITALS: BP 140/75; PULSE 94; RESP 18; TEMP 36.8; O2SAT 99
[2024-11-21 09:19] LABS: HIV Combo NEGATIVE (Negative)
[2024-11-21 09:24] LABS: Hepatitis C Ab Qual. W/ RFX NEGATIVE (Negative)
[2024-11-21 11:06] LABS: Reflex Lactic Add Lactic Reflex
== END 2024-11-21 08:40 | disposition home or self-care (01) ==
LOC: ER 06:41
PROVIDERS: Emergency Provider Emergency Medicine; PCP Internal Medicine
DX: J18.9 Pneumonia, unspecified organism (principal); R50.9 Fever, unspecified; R09.81 Nasal congestion; Z11.59 Encounter for screening for other viral diseases; Z11.4 Encounter for screening for human immunodeficiency virus [HIV]
CPT/HCPCS: 71046; 80053; 82803; 85025; 86803; 87040; 87389; 87636; 99283

== ENCOUNTER 2024-11-27 11:24 | Outpatient (CLI) | payer MEDICARE, SELFPAY ==
[2024-11-27 11:28] VITALS: BMI 29.2
[2024-11-27 12:04] LABS: Basophils # 0.1 K/mm3 (0-0.2); Basophils % 0.7 % (0.1-2.0); Eosinophils # 0.2 Kmm3 (0.0-0.4); Eosinophils % 1.5 % (0.1-12.0); Hematocrit 45.1 % (37.0-47.0); Hemoglobin 15.1 g/dL (12.2-16.2); Immature Granulocytes # 0.26 10^3uL; Immature Granulocytes % 2.1 %; Lymphocytes # 3.3 K/mm3 (0.7-4.5); Mean Corpuscular HGB Conc 33.5 g/dL (31.8-35.4); Mean Corpuscular Hemoglobin 29.2 pg (27.0-31.2); Mean Corpuscular Volume 87.2 fl (81-99); Mean Platelet Volume 9.9 fl (7.4-10.4); Monocytes # 0.7 K/mm3 (0.1-1.0); Monocytes % 5.8 % (1.7-9.3); Neutrophils # 7.7 K/mm3 (1.8-7.8); Neutrophils % 62.9 % (37.0-80.0); Nucleated Red Blood Cells # 0 10^3/uL; Nucleated Red Blood Cells % 0 %; Platelet Count 373 K/mm3 (142-424); Red Blood Count 5.17 M/mm3 (4.20-5.40); Red Cell Distribution Width 12.8 % (11.5-17.5); Red Cell Distribution Width-SD 40.8 fL; White Blood Count 12.3 K/mm3 (4.8-10.8)
[2024-11-27 12:04] LABS: Adenovirus F 40/41, stool Not Detected (NotDetected); Astrovirus Not Detected (NotDetected); Campylobacter Not Detected (NotDetected); Clostridium Difficile A/B, PCR Not Detected (NotDetected); Cryptosporidium Not Detected (NotDetected); Cyclospora Cayetanesis Not Detected (NotDetected); Entamoeba histolytica Not Detected (NotDetected); Enteroaggregative E coli Not Detected (NotDetected); Enteropathogenic E coli Not Detected (NotDetected); Enterotoxigenic E coli Not Detected (NotDetected); Giardia lamblia Not Detected (NotDetected); Norovirus Not Detected (NotDetected); Plesimonas Shigalloides, PCR Not Detected (NotDetected); Rotavirus A Not Detected (NotDetected); Salmonella, PCR Not Detected (NotDetected); Sapovirus Not Detected (NotDetected); Shiga-like toxin E coli Not Detected (NotDetected); Shigella Enterovasive E coli Not Detected (NotDetected); Vibrio Cholerae Not Detected (NotDetected); Vibrio, PCR Not Detected (NotDetected); Yersinia Entercolitica, PCR Not Detected (NotDetected)
[2024-11-27 12:05] VITALS: BP 121/70; PULSE 75; RESP 16; TEMP 36.5; O2SAT 96
[2024-11-27] MEDS: 0.9 % SODIUM CHLORIDE 1000ML 1,000 ML 500 ML IV (12:05)
[2024-11-27] MEDS: ONDANSETRON 4MG/2ML VIAL 4 MG IV (12:10)
[2024-11-27 12:14] LABS: Chloride 97 mmol/L (98-107); Sodium 134 mmol/L (136-145)
[2024-11-27 12:15] LABS: Potassium 3.7 mmoL/L (3.5-5.1)
[2024-11-27 12:17] LABS: Anion Gap 10.7 mEq/L (5-15); Blood Urea Nitrogen 18 mg/dl (7-17); Carbon Dioxide 30 mmol/L (22.0-30.0); Creatinine Clearance Estimated 65 mL/min (50-200); Estimated Glomerular Filt Rate 63 ml/min (>60); GFR (African American) 76 ML/MIN (>60)
[2024-11-27 12:18] LABS: Calcium 9.9 mg/dl (8.4-10.2); Glucose 219 mg/dl (74-100)
[2024-11-27 14:05] VITALS: BP 131/76; PULSE 78; RESP 16
== END 2024-11-27 14:10 | disposition home or self-care (01) ==
LOC: INF 11:27
PROVIDERS: PCP Internal Medicine; Visit Provider Internal Medicine
DX: E86.0 Dehydration (principal)
CPT/HCPCS: 80048; 85025; 87506; 96360; 96361; 96374; 96375; J2405; J7030

== ENCOUNTER 2025-04-15 11:40 | Outpatient (CLI) | payer MEDICARE, SELFPAY ==
[2025-04-15 13:48] LABS: Hematocrit 40.5 % (37.0-47.0); Hemoglobin 13.3 g/dL (12.2-16.2); Immature Granulocytes % 0.4 %; Mean Corpuscular HGB Conc 32.8 g/dL (31.8-35.4); Mean Corpuscular Hemoglobin 29.2 pg (27.0-31.2); Mean Corpuscular Volume 89.0 fl (81-99); Nucleated Red Blood Cells % 0 %; Platelet Count 271 K/mm3 (142-424); Red Blood Count 4.55 M/mm3 (4.20-5.40); Red Cell Distribution Width-SD 42.4 fL; White Blood Count 8.3 K/mm3 (4.8-10.8)
[2025-04-15 14:02] LABS: Alanine Aminotransferase 36 U/L (12-78); Albumin Level 4.2 g/dl (3.5-5.0); Albumin/Globulin Ratio 1.8 (1.1-1.8); Alkaline Phosphatase 88 U/L (38-126); Anion Gap 15.1 mEq/L (5-15); Aspartate Amino Transferase 35 U/L (14-36); Bilirubin,Total 0.9 mg/dl (0.2-1.3); Blood Urea Nitrogen 14 mg/dl (7-17); Calcium 9.7 mg/dl (8.4-10.2); Carbon Dioxide 28 mmol/L (22.0-30.0); Chloride 98 mmol/L (98-107); Cholesterol 221 mg/dl (140-200); Creatinine,Serum 0.70 mg/dl (0.52-1.04); Estimated Glomerular Filt Rate 83 ml/min (>60); GFR (African American) 101 ML/MIN (>60); Globulin 2.3 g/dL (1.3-3.2); Glucose 152 mg/dl (74-100); HDL Cholesterol 58 mg/dl (40-60); Potassium 4.1 mmoL/L (3.5-5.1); Sodium 137 mmol/L (136-145); Total Protein,Serum 6.5 g/dl (6.3-8.2); Triglycerides 171 mg/dl (30-150)
[2025-04-15 14:32] LABS: Thyroid Stimulating Hormone 1.88 uIU/mL (0.465-4.68)
[2025-04-15 15:41] LABS: Hemoglobin A1C 8.4 % (4.0-6.0)
--- OUTSIDE RECORDS SUMMARY | 2025-04-16 10:07 | XMS_ITS | Clinical Summary ---
Author Organization [facility] Address [address] [place] [address] Phone Care Team Providers Care Core Filer Name Role Phone Unavailable Primary Care Provider Unavailabl e Social History Tobacco Use Types Packs/Day Years Used Date Smoking Tobacco: Never Assessed Comments Unknown Sex and Gender Information Value Date Recorded Sex Assigned at Not on file Legal Sex Female 9:28 AM EDT Gender Identity Not on file Sexual Orientation Not on file Plan of Treatment Health Maintenance Due Date Last Done Comments Annual Wellness Exam 1961 Hepatitis C Screening 1976 DTaP/TDaP/Td (1 - Tdap) 1977 Breast Cancer Screening 1998 Cologuard 2003 Colon Cancer Screening 2003 Colonoscopy 2003 FIT 2003 Sigmoidoscopy 2003 Virtual Colonography 2003 Pneumococcal Vaccine 50+ (1 of 1 - PCV) 2008 Zoster (1 of 2) 2008 Bone Density Screening 2023 COVID-19 Vaccine (1 - 2023-2 5 season) 2025 Influenza Vaccine (#1) 2025 Hepatitis B Vaccine Aged Out No longe r eligible based on patient's age to complete this topic Meningococcal B Vaccine Aged Out No l onger eligible based on patient's age to complete this topic
== END 2025-04-15 23:59 ==
LOC: LAB.DROPOF 04-16 10:04
PROVIDERS: PCP Internal Medicine; Visit Provider Internal Medicine
DX: E03.9 Hypothyroidism, unspecified (principal); E78.5 Hyperlipidemia, unspecified; E11.42 Type 2 diabetes mellitus with diabetic polyneuropathy; I10 Essential (primary) hypertension; K92.1 Melena
CPT/HCPCS: 80053; 80061; 83036; 84443; 85025